=== PATIENT | male | born 1975 | race Caucasian/White ===

== ENCOUNTER → 2019-04-19 | Outpatient (CLI) | payer OTHER ==
--- NOTE | 2019-04-19 10:56 | Diagnostic Imaging Report ---
PROCEDURE: MR imaging cervical spine without contrast. TECHNIQUE: Multiplanar, multisequence MR imaging of the cervical spine was performed without contrast. INDICATION: Neck pain with left arm pain and numbness and left hand numbness. No prior studies are available for comparison. FINDINGS: There is slight reversal of the normal cervical lordotic curvature. Alignment appears normal. Marrow signal intensity is unremarkable apart from some reactive changes in the endplates from degenerative disc disease. There is generalized degenerative disc disease with variable disc space narrowing and desiccation. The cervical cord shows normal signal intensity and morphology. Craniocervical junction is unremarkable. C2-C3: Central canal and neuroforamina are widely patent. C3-C4: Central canal and neuroforamina are widely patent. C4-C5: Endplate osteophytes indent the ventral thecal sac. No significant canal narrowing is seen. There are uncovertebral joint degenerative changes resulting in mild bilateral neuroforaminal narrowing. C5-C6: Broad-based disc/osteophyte complex indents the ventral thecal sac and produces mild to moderate narrowing of the canal. Uncovertebral joint degenerative change results in moderate neuroforaminal narrowing bilaterally but greatest on the left. C6-C7: Endplate osteophytes indent the ventral thecal sac, produce mild narrowing. There is uncovertebral joint degenerative change resulting in moderate bilateral neuroforaminal stenosis. C7-T1: Unremarkable. IMPRESSION: Cervical spondylosis with multilevel central canal and neuroforaminal narrowing described level by level above. Dictated by: Dictated on workstation # [id number]
== END ==
LOC: RAD 09:47
PROVIDERS: ATTEND Family Medicine
DX: M48.02 Spinal stenosis, cervical region (principal); M47.812 Spondylosis without myelopathy or radiculopathy, cervical region; M25.78 Osteophyte, vertebrae; M50.30 Other cervical disc degeneration, unspecified cervical region
CPT/HCPCS: 72141

== ENCOUNTER 2022-10-11 00:28 | Emergency (ER) | payer OTHER ==
[~2022-10-11] VITALS: Ht 170 cm; Wt 82.0 kg
[2022-10-11] MEDS ORDERED: RX-NAPROXEN (NAPROSYN) 250 MG TAB PPK#4 PO STA (00:59)
[2022-10-11] MEDS ORDERED: RX-MUPIROCIN (BACTROBAN) 2% OINT 22 GM TUBE TOP STA (00:59)
[2022-10-11] MEDS ORDERED: TETANUS,DIPTH,PERTUSS P/F (BOOSTRIX) 0.5 ML VIAL IM ONE (01:00)
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
[2022-10-11] MEDS ORDERED: ACHD5005 PO (01:08)
[2022-10-11] MEDS ORDERED: NAPR500T8 PO (01:08)
[2022-10-11 01:45] VITALS: BP 159/89
== END 2022-10-11 01:45 | disposition home or self-care (01) ==
LOC: EDUNIT# 00:28 → ER 00:36
DX: T23.262A Burn of second degree of back of left hand, initial encounter (principal); T24.121A Burn of first degree of right knee, initial encounter; Z23 Encounter for immunization; X10.1XXA Contact with hot food, initial encounter; Y92.59 Other trade areas as the place of occurrence of the external cause; Y93.G1 Activity, food preparation and clean up; Y99.0 Civilian activity done for income or pay
CPT/HCPCS: 90715; 99283

== ENCOUNTER → 2022-10-27 | Outpatient (CLI) | payer OTHER ==
[~2022-10-27] MED LIST: ACHD5005 PO; NAPR500T8 PO
== END ==
LOC: WOUNDCARE 09:04
PROVIDERS: ATTEND Family Medicine
DX: T23.362A Burn of third degree of back of left hand, initial encounter (principal); T31.0 Burns involving less than 10% of body surface
CPT/HCPCS: 16020; G0463